=== PATIENT | male | born 1995 | race Caucasian/White ===

== ENCOUNTER 2018-04-08 19:38 | Emergency (ER) | payer OTHER ==
[~2018-04-08] VITALS: Ht 160 cm; Wt 74.8 kg
[~2018-04-08 19:38] MED LIST: RITALIN10 MG PO; TYLENOL EX-STR500 M2 PO
[2018-04-08 20:22] LABS: HEMATOCRIT 52.5 % (42.0-52.0); HEMOGLOBIN 18.1 gm/dL (14.0-18.0); MCHC 34.5 g/dL (28.0-37.0); MCV 86.9 fL (80.0-100.0); PLATELET COUNT 295 thou/uL (150-400); RBC 6.04 mil/uL (4.50-6.00); RDW 13.8 % (10.5-14.5); WBC 14.7 thou/uL (4.0-11.0)
[2018-04-08 20:30] LABS: CALCIUM 9.4 mg/dL (8.5-10.1); CREATININE 1.2 mg/dL (0.7-1.3); POTASSIUM 4.3 mmol/L (3.5-5.1)
[2018-04-08 20:36] LABS: ALBUMIN 4.6 g/dL (3.4-5.0); TOTAL BILIRUBIN 1.7 mg/dL (<0.1-1.0); TOTAL PROTEIN 8.8 g/dL (6.4-8.2)
[2018-04-08] MEDS ORDERED: CONCERTA54 M1 PO (20:39)
[2018-04-08 20:52] LABS: ABSOLUTE NEUTROPHILS 12.9 thou/uL (1.4-8.2)
[2018-04-08 20:53] LABS: LARGE PLATELETS RARE; PLATELET ESTIMATE NORMAL
[2018-04-08 21:29] LABS: URINE BILIRUBIN NEGATIVE (Negative); URINE BLOOD NEGATIVE (Negative); URINE CLARITY CLEAR; URINE COLOR YELLOW; URINE GLUCOSE-RANDOM* NEGATIVE (Negative); URINE KETONES NEGATIVE (Negative); URINE LEUKOCYTES NEGATIVE (Negative); URINE NITRITE NEGATIVE (Negative); URINE PROTEIN (DIPSTICK) TRACE (Negative); URINE SPECIFIC GRAVITY 1.025 (1.005-1.035); URINE UROBILINOGEN 0.2 E.U./dl (0.2-1.0)
[2018-04-08] MEDS ORDERED: PHENERGAN 25 MG25 M1 PO (22:25)
[2018-04-09 00:06] VITALS: BP 119/68
== END 2018-04-09 00:09 | disposition home or self-care (01) ==
LOC: ER 19:38
PROVIDERS: Physician Assistant
DX: R65.10 Systemic inflammatory response syndrome (SIRS) of non-infectious origin without acute organ dysfunction (principal); R11.2 Nausea with vomiting, unspecified; R19.7 Diarrhea, unspecified; F98.8 Other specified behavioral and emotional disorders with onset usually occurring in childhood and adolescence